=== PATIENT | female | born 1995 | race Caucasian/White ===

== ENCOUNTER 2017-04-20 12:37 | Inpatient (IN) | payer MEDICAID ==
[~2017-04-20] VITALS: Ht 149.9 cm; Wt 70.3 kg
[2017-04-20 12:59] VITALS: BP 136/68
--- NOTE | 2017-04-20 13:10 | NUR ---
21/F BIB FRIEND C/O MID ABDOMINAL PAIN X YESTERDAY. PT STATES HAS N/V AT THIS TIME. SKIN IS PINK/WARM/DRY; AAOX4 WITH EVEN AND STEADY GAIT; LUNGS CLEAR BL; HR EVEN AND REGULAR; PT DENIES ANY FEVER, CP, SOB, OR COUGH AT THIS TIME; PATIENT STATES PAIN OF 10/10 AT THIS TIME; VSS; PATIENT POSITIONED FOR COMFORT; HOB ELEVATED; BEDRAILS UP X2; BED DOWN. ER MD MADE AWARE OF PT STATUS.
[2017-04-20] MEDS ORDERED: HYDROmorphone 1 MG/ML AMP IVP ONE ×2 (13:30→15:30)
--- NOTE | 2017-04-20 13:38 | NUR ---
ER MD DR GOODWIN EVALUATING PT AT BEDSIDE.
--- NOTE | 2017-04-20 13:38 | NUR ---
INSERTED IV CATH NO 20 G RAC ; PT TOLERATED PROCEDURE WELL. IV PATENT/INTACT. Addendum: 04/20/17 at 1406 by [email or web address] Amendment undone in EDM - 04/20/17 at 1407 by [email or web address] NEDS GIVEN ORDER. Addendum: 04/20/17 at 1407 by [email or web address] MEDS GIVEN ORDER.
[2017-04-20] MEDS ORDERED: ONDANSETRON 4 MG/2 ML VIAL IVP ONE (13:40)
[2017-04-20] MEDS ORDERED: NACL 0.9% 1,000 ML IV ONE ×4 (13:40→17:05)
--- NOTE | 2017-04-20 13:56 | NUR ---
LAB AT BEDSIDE
--- NOTE | 2017-04-20 14:00 | NUR ---
Lana fitch in [facility] - 04/20/17 at 1453 by MED1 PROVIED URINE CUP FOR URINE COLLECTION.
--- NOTE | 2017-04-20 14:00 | NUR ---
PROVIDED URINE CUP FOR URINE COLLECTION.
--- NOTE | 2017-04-20 14:04 | NUR ---
PT STS ABDOMINAL PAIN 04/10.Patient appears to be resting comfortably in bed. Vital Signs within normal limits. Respirations even and unlabored.WILL CONTINUE TO MONITOR.
[2017-04-20 14:19] LABS: ANION GAP 15.4 (8-16); BASOPHILS # (AUTO) 0.1 K/uL (0.00-0.22); BASOPHILS % (AUTO) 1.2 % (0.0-2.0); CALCIUM 8.5 mg/dL (8.5-10.1); CARBON DIOXIDE 24.2 mmol/L (21-32); CREATININE 0.9 mg/dL (0.6-1.3); EOSINOPHILS # (AUTO) 0.1 K/uL (0-0.4); EOSINOPHILS % (AUTO) 1.2 % (0.0-4.0); HEMATOCRIT 38.2 % (36-48); HEMOGLOBIN 12.8 g/dL (12.0-16.0); LYMPHOCYTES # (AUTO) 0.6 K/uL (2.5-16.5); LYMPHOCYTES % (AUTO) 7.7 % (20.5-51.1); MEAN CORPUSCULAR HEMOGLOBIN 27 pg (27-31); MEAN CORPUSCULAR HGB CONC 34 g/dL (33-37); MEAN CORPUSCULAR VOLUME 80 fL (80-94); MONOCYTES # (AUTO) 0.6 K/uL (0.8-1.0); MONOCYTES % (AUTO) 7.7 % (1.7-9.3); NEUTROPHILS # (AUTO) 6.6 K/uL (1.8-7.7); NEUTROPHILS % (AUTO) 82.2 % (42.2-75.2); PLATELET COUNT (AUTO) 380 K/uL (140-450); POTASSIUM 3.6 mmol/L (3.5-5.1); RED BLOOD CELL COUNT(AUTO) 4.77 MIL/uL (4.20-5.40); RED CELL DISTRIBUTION WIDTH 12.9 % (11.6-13.7)
[2017-04-20 14:24] LABS: ALBUMIN 3.9 g/dL (3.4-5.0); TOTAL BILIRUBIN 0.6 mg/dL (0.0-1.0); TOTAL PROTEIN, SERUM 8.5 g/dL (6.4-8.2)
[2017-04-20 14:27] LABS: LACTIC ACID 0.9 mmol/L (0.4-2.0)
--- NOTE | 2017-04-20 14:49 | NUR ---
Patient appears to be SLEEPING comfortably in bed. Vital Signs within normal limits. Respirations even and unlabored.WILL CONTINUE TO MONITOR.
--- NOTE | 2017-04-20 15:07 | NUR ---
PT AMBULATED TO RESTROOM.
--- NOTE | 2017-04-20 15:30 | NUR ---
PT WENT TO RESTROOM IN 20 MINS ; PT CAN'T URENATE. PT STS ABDOMINAL PAIN 07/[address] CAMERON.
--- NOTE | 2017-04-20 15:40 | NUR ---
IVF&MED GIVEN ORDER.Patient appears to be resting comfortably in bed. Vital Signs within normal limits. Respirations even and unlabored.WILL CONTINUE TO MONITOR.
--- NOTE | 2017-04-20 15:40 | NUR ---
Note little in EDM - 04/20/17 at 1544 by MED1 IVF&MED GIVEN ORDER.Patient appears to be resting comfortably in bed. Vital Signs within normal limits. Respirations even and unlabored.
--- NOTE | 2017-04-20 16:02 | NUR ---
PT STS ABDOMINAL PAIN 04/10. DENIES N/V AT THIS TIME.
--- NOTE | 2017-04-20 16:03 | NUR ---
Patient appears to be resting comfortably in bed. Vital Signs within normal limits. Respirations even and unlabored.WILL CONTINUE TO MONITOR. FRIEND AT BEDSIDE.
--- NOTE | 2017-04-20 16:07 | NUR ---
MOTHER AT BEDSIDE.
--- NOTE | 2017-04-20 16:23 | NUR ---
PT HAS N/V. NOTIFIED ER MD DR CAMERON .
[2017-04-20] MEDS ORDERED: METOCLOPRAMIDE 10 MG/2 ML INJ VIAL IVP ONE (16:25)
--- NOTE | 2017-04-20 17:10 | NUR ---
PT AMB TO RESTROOM. URENATED, URINE DIP DONE, SENT SPECIMEN TO LAB
--- NOTE | 2017-04-20 17:25 | NUR ---
Patient appears to be resting comfortably in bed. BP105/59,P103, PULSE OX 100%. Respirations even and unlabored.WILL CONTINUE TO MONITOR. Addendum: 04/20/17 at 1730 by [email or web address] BP 103/76
[2017-04-20 17:44] LABS: APPEARANCE,URINE CLEAR (CLEAR); BILIRUBIN,URINE NEGATIVE (NEGATIVE); BLOOD, URINE NEGATIVE (NEGATIVE); COLOR,URINE YELLOW (YELLOW); LEUKOCYTE ESTERASE ,URINE NEGATIVE (NEGATIVE); NITRITE, URINE NEGATIVE (NEGATIVE); PH,URINE 5.5 (5.0-9.0); PROTEIN,URINE NEGATIVE (NEGATIVE); UGLUCOSE NEGATIVE (NEGATIVE); UROBILINOGEN,URINE 0.2 EU/dL (0.2 - 1)
--- NOTE | 2017-04-20 17:50 | NUR ---
PT TAKEN TO CT VIA W/C ACCOMPANIED BY INSURANCE AND FINANCIAL SERVICES AGENT. PT STS ABDOMINAL PAIN 02/08. DENIEDS N/V AT THIS TIME.
[2017-04-20 17:55] LABS: BACTERIA,URINE 1-9 (FEW) /HPF (None Seen); RBC,URINE 0-5 (RARE) /HPF (0-5); SQUAMOUS EPITHELIAL CELL,UR 4-10 (MOD) /LPF (0-3 (FEW))
--- NOTE | 2017-04-20 17:59 | NUR ---
PT BACK FROM CT
--- NOTE | 2017-04-20 19:00 | NUR ---
Patient appears to be resting comfortably in bed. Vital Signs within normal limits. Respirations even and unlabored.WILL CONTINUE TO MONITOR .PT C/O PAIN 05/11
--- NOTE | 2017-04-20 19:12 | NUR ---
Pt report given to AFTAB BURGESS. Transfer of care at this time.
[2017-04-20] MEDS ORDERED: NACL 0.9% 1,000 ML IV SCH (19:14)
[2017-04-20] MEDS ORDERED: ACETAMINOPHEN 325 MG TAB PO PRN (19:15)
[2017-04-20] MEDS ORDERED: DOCUSATE SODIUM 100 MG GELCAP PO PRN (19:15)
--- NOTE | 2017-04-20 19:55 | NUR ---
Patient will be admitted to care of DR MARC. Admited to TELE 105B. Will go to room 105B. Belongings list completed. Report to JAHAIRA UGALDE .
--- NOTE | 2017-04-20 19:55 | NUR ---
REPORT GIVEN TO JAHAIRA UGALDE.
[2017-04-20] MEDS ORDERED: LEVOFLOXACIN 500 MG/D5W PREMIX 100 ML IV SCH (20:00)
[2017-04-20 20:05] VITALS: BP 106/72
--- NOTE | 2017-04-20 20:05 | NUR ---
Admitted from ER, with chief complaint of ABD PAIN. PT'S MOTHER AT BEDSIDE. 21 y/o, Female, Cooperative, AOX4, ABLE TO VERBALIZE NEEDS. PT DENIES NAUSEA/VOMITING AT THIS TIME. PT C/O ABD PAIN. WILL ADMINISTER PAIN MEDICATION ORDERED. oriented to call light, bed, phone,television, bathroom, smoking policy, visiting hours, procedures, ID bracelet on. Belongings list checked. DISCUSSED AND REVIEWED PLAN OF CARE WITH PT AND PT'S MOTHER. PT VERBALIZED UNDERSTANDING. SAFETY MEASURES ENSURED. CALL LIGHT WITHIN REACH. WILL CONTINUE TO MONITOR.
[2017-04-20 20:15] LABS: INR 1.1 (0.8-1.2); PARTIAL THROMBOPLASTIN TIME 29.9 secs (22-35.6); PROTHROMBIN TIME 11.2 secs (10.8-13.4)
[2017-04-20 20:28] LABS: CHOL/HDL RATIO 3.5 (1-4.5); FREE T4 (FREE THYROXINE) 0.9 ng/dL (0.76-1.46); MAGNESIUM 1.9 mg/dL (1.8-2.4); PHOSPHORUS 3.3 mg/dL (2.5-4.9); THYROID STIMULATING HORMONE 1.64 uIU/mL (0.34-3.74)
[2017-04-20] MEDS: MORPHINE SULFATE 2 MG/ML SYR IVP PRN ×2 (20:42→23:17)
--- NOTE | 2017-04-20 20:42 | NUR ---
PT C/O ABD PAIN. SEE PAIN ASSESSMENT. ADMINISTERED PAIN MED ORDERED. PT EVALUATED BY DR ROMAN AT BEDSIDE, DISCUSSED AND REVIEWED PT CONDITION AND SURGERY. PT VERBALIZED UNDERSTANDING. CONSENT SIGNED, PRE-OP CHECKLIST DONE. AWAITING OR NURSE TO FIBERGLASS BOAT PARTS FINISHER PATIENT.
[2017-04-20] MEDS ORDERED: ROCURONIUM 50 MG/5 ML VIAL IV ONE (21:00)
[2017-04-20] MEDS ORDERED: metroNIDAZOLE 500 MG/NS PREMIX 100 ML IV SCH (21:00)
[2017-04-20] MEDS ORDERED: BUPIVACAINE-MPF/EPI 0.25% 30 ML VIAL INJ ONE (21:00)
[2017-04-20] MEDS ORDERED: SUCCINYLCHOLINE CHLORIDE 200 MG/10 ML VIAL IVP ONE (21:00)
[2017-04-20] MEDS ORDERED: GLYCOPYRROLATE 0.2 MG/ML VIAL ONE (21:00)
[2017-04-20] MEDS ORDERED: SEVOFLURANE 250 ML BTL INH ONE (21:00)
[2017-04-20] MEDS ORDERED: PHENYLEPHRINE 10 MG/ML VIAL ONE (21:00)
[2017-04-20] MEDS ORDERED: PROPOFOL 200 MG/20 ML VIAL IV ONE (21:00)
[2017-04-20] MEDS ORDERED: DEXAMETHASONE 4 MG/ML VIAL ONE (21:00)
[2017-04-20] MEDS ORDERED: ONDANSETRON 4 MG/2 ML VIAL ONE (21:00)
[2017-04-20] MEDS ORDERED: HYDROmorphone 1 MG/ML AMP IVP PRN (21:10)
[2017-04-20] MEDS ORDERED: MEPERIDINE 25 MG/ML SYR IVP PRN (21:10)
[2017-04-20] MEDS ORDERED: ONDANSETRON 4 MG/2 ML VIAL IVP PRN (21:10)
[2017-04-20] MEDS ORDERED: LACTATED RINGERS 1,000 ML IV SCH (21:10)
[2017-04-20] MEDS ORDERED: diphenhydrAMINE 50 MG/ML VIAL IVP PRN (21:10)
[2017-04-20] MEDS ORDERED: MIDAZOLAM 2 MG/2 ML VIAL ONE (21:19)
[2017-04-20] MEDS ORDERED: fentaNYL 0.05 MG/ML VIAL ONE (21:19)
[2017-04-20] MEDS ORDERED: MEPERIDINE 50 MG/ML SYR ONE (21:20)
[2017-04-20 23:04] VITALS: BP 102/55
--- NOTE | 2017-04-20 23:04 | NUR ---
PT BACK FROM OR. RECEIVED REPORT FROM OR NURSE. VS NOTED. PT C/O ABD PAIN. SEE PAIN ASSESSMENT. WILL ADMINISTER PAIN MEDICATION. 3 LAPARASCOPIC INCISIONS NOTED, SKIN GLUE NOTED. NO S/S OF ACUTE DISTRESS. SAFETY MEASURES ENSURED. CALL LIGHT WITHIN REACH. WILL CONTINUE TO MONITOR.
[2017-04-20 23:19] VITALS: BP 107/63
[2017-04-20 23:34] VITALS: BP 107/60
[2017-04-20] MEDS: LEVOFLOXACIN 500 MG/D5W PREMIX 100 ML IV SCH (23:48)
[2017-04-20] MEDS: NACL 0.9% 1,000 ML IV SCH (23:48)
[2017-04-21] VITALS: BP 110/64
[2017-04-21] MEDS: HYDROcodone/APAP 7.5/325 MG 1 TAB PO PRN ×3 (01:31→16:25)
--- NOTE | 2017-04-21 01:32 | NUR ---
PT C/O BREAKTHROUGH PAIN. SEE PAIN ASSESSMENT. ADMINISTERED NORCO WITH EDUCATION. PT VERBALIZED UNDERSTANDING, TOLERATED MED WELL. SAFETY MEASURES ENSURED. CALL LIGHT WITHIN REACH.
[2017-04-21] MEDS: ONDANSETRON 4 MG/2 ML VIAL IM/IVP PRN ×2 (03:48→08:09)
[2017-04-21] MEDS: MORPHINE SULFATE 2 MG/ML SYR IVP PRN (03:48)
--- NOTE | 2017-04-21 03:51 | NUR ---
ASSISTED PT TO THE RESTROOM. PT ABLE TO AMBULATE WITH 1PERSON ASSIST WITH MODERATE ASSISTANCE BUT PT IS MOANING, CRYING AND GUARDING, STATING SHE HAS A LOT OF PAIN. ADMINISTERED MORPHINE ORDERED. PT C/O NAUSEA, ADMINISTERED ZOFRAN ORDERED WITH EDUCATION.
[2017-04-21 04:00] VITALS: BP 119/60
[2017-04-21] MEDS ORDERED: MORPHINE SULFATE 4 MG/ML SYR IVP PRN (04:10)
--- NOTE | 2017-04-21 04:25 | NUR ---
PT STILL IN RESTROOM, UPON ATTEMPTING TO GET UP, PT C/O SEVERE PAIN, STATING "I CAN'T, IT HURTS TOO MUCH TO MOVE." PT STATED NO RELIEF FROM MORPHINE. MADE DR SILVERIO AWARE OF UNRELIEVED PAIN AFTER 2MG MORPHINE AND THAT PT IS STILL HAVING NAUSEA AFTER ZOFRAN IV. ORDERS PENDING, WILL CARRY OUT.
[2017-04-21] MEDS ORDERED: AMPICILLIN/SULBACTAM 3 GM VIAL ONE (04:33)
[2017-04-21] MEDS: AMPICILLIN/SULBACTAM 3 GM in NACL 0.9% 100 ML IV SCH ×3 (04:34→21:08)
--- NOTE | 2017-04-21 04:45 | NUR ---
PT ASSISTED BACK TO BED BUT C/O SEVERE PAIN. WAS ABOUT TO GIVE 5MG MORPHINE IVP ONE TIME ORDERED, BUT PT REFUSED MED, STATING "I THINK THE MORPHINE MAKES ME FEEL NAUSEOUS." WILL NOTIFY MD. PT RESTING IN BED AT THIS TIME. IVPB INFUSING WELL. SAFETY MEASURES ENSURED. CALL LIGHT IN REACH.
[2017-04-21] MEDS ORDERED: KETOROLAC 30 MG/ML VIAL IVP PRN (04:50)
[2017-04-21] MEDS ORDERED: MORPHINE SULFATE 10 MG/ML SYR IVP SCH (05:00)
[2017-04-21] MEDS: metroNIDAZOLE 500 MG/NS PREMIX 100 ML IV SCH ×3 (05:49→21:07)
[2017-04-21 06:06] LABS: BASOPHILS # (AUTO) 0.1 K/uL (0.00-0.22); BASOPHILS % (AUTO) 0.4 % (0.0-2.0); EOSINOPHILS # (AUTO) 0.3 K/uL (0-0.4); HEMATOCRIT 33.6 % (36-48); HEMOGLOBIN 11.1 g/dL (12.0-16.0); LYMPHOCYTES # (AUTO) 0.6 K/uL (2.5-16.5); LYMPHOCYTES % (AUTO) 4.3 % (20.5-51.1); MEAN CORPUSCULAR HEMOGLOBIN 27 pg (27-31); MEAN CORPUSCULAR HGB CONC 33 g/dL (33-37); MEAN CORPUSCULAR VOLUME 82 fL (80-94); MONOCYTES # (AUTO) 0.3 K/uL (0.8-1.0); MONOCYTES % (AUTO) 2.5 % (1.7-9.3); NEUTROPHILS # (AUTO) 12.4 K/uL (1.8-7.7); NEUTROPHILS % (AUTO) 90.8 % (42.2-75.2); PLATELET COUNT (AUTO) 345 K/uL (140-450); RED BLOOD CELL COUNT(AUTO) 4.12 MIL/uL (4.20-5.40); RED CELL DISTRIBUTION WIDTH 13.1 % (11.6-13.7)
--- NOTE | 2017-04-21 06:23 | NUR ---
PATIENT HAS BEEN SCREENED AND CATEGORIZED MODERATE NUTRITION RISK. PATIENT WILL BE SEEN WITHIN 3-5 DAYS OF ADMISSION. 04/23/17-04/25/[address]
[2017-04-21 06:31] LABS: ANION GAP 14.8 (8-16); CALCIUM 7.6 mg/dL (8.5-10.1); CARBON DIOXIDE 23.2 mmol/L (21-32); CREATININE 0.8 mg/dL (0.6-1.3)
[2017-04-21 06:58] LABS: WHITE BLOOD COUNT (AUTO) 13.7 K/uL (4.5-11.0)
--- NOTE | 2017-04-21 07:30 | NUR ---
ENDORSED PLAN OF CARE TO AM NURSE. PT SLEEPING. CONDITION STABLE.
--- NOTE | 2017-04-21 07:31 | NUR ---
RECEIVED CARE OF PT FROM BILINGUAL KINDERGARTEN TEACHER NURSE AT BEDSIDE. PT IS SLEEPING. NO DISTRESS NOTED. UPDATED THE BOARD. PT HAS IV ON R AC 20G RUNNING NS@100ML/HR. PT IS S/P LAP APPENDECTOMY, 3 INCISIONS, SKIN GLUE IN PLACE. CALL LIGHT WITHIN REACH. WILL CONTINUE TO MONITOR.
[2017-04-21 08:00] VITALS: BP 112/55
--- NOTE | 2017-04-21 08:05 | NUR ---
PT C/O OF SEVERE PAIN AND NAUSEA. PAIN MED AND ZOFRAN ADMINISTERED. VOMIT BAG AT BEDSIDE. PT IS SITTING AT EDGE OF BED. CALL LIGHT WITHIN REACH. WILL CONTINUE TO MONITOR.
[2017-04-21] MEDS: LACTOBACILLUS RHAMNOSUS GG 1 EACH CAP PO SCH (08:09)
[2017-04-21 08:18] LABS: HEMOGLOBIN A1C 5.6 % (4.8-5.6); T4 (THYROXINE) 6.3 ug/dL (4.5-12.0)
[2017-04-21] MEDS: NACL 0.9% 1,000 ML IV SCH ×2 (09:00→19:00)
--- NOTE | 2017-04-21 10:24 | NUR ---
PT STATED NAUSEA HAS IMPROVED. EDUCATED PT TO CALL FOR HELP AND FOR PAIN MED. VERBALIZED UNDERSTANDING. CALL LIGHT WITHIN REACH. WILL CONTINUE TO MONITOR.
--- NOTE | 2017-04-21 12:00 | NUR ---
HR 93, TEMP 98.6. PT SAT UP TO EAT LUNCH. NO COMPLAINTS AT THIS TIME. CALL LIGHT WITHIN REACH. WILL CONTINUE TO MONITOR.
--- NOTE | 2017-04-21 14:09 | NUR ---
PT HAS NO COMPLAINTS AT THIS TIME. NO DISTRESS NOTED. CALL LIGHT WITHIN REACH. WILL CONTINUE TO MONITOR.
--- NOTE | 2017-04-21 16:50 | NUR ---
PT C/O LEAKAGE AT IV SITE. IV REMOVED CANNULA INTACT. WILL PUT IN NEW IV.
--- NOTE | 2017-04-21 18:00 | NUR ---
INSERTED NEW IV ON L F/A 22 G. TOLERATED WELL. CALL LIGHT WITHIN REACH. WILL CONTINUE TO MONITOR.
--- NOTE | 2017-04-21 19:28 | NUR ---
ENDORSED CARE OF PT TO BACKEND DEVELOPER NURSE AT BEDSIDE. PT IN STABLE CONDITION.
--- NOTE | 2017-04-21 19:50 | NUR ---
SEEN PT AWAKE, ALERT AND ORIENTED LYING IN BED. MOTHER AT BEDSIDE. INITIAL ASSESSMENT DONE. PT HAS 3 ABDOMINAL INCISIONS W/ GLUE. PT COMPLAINING OF PRESSURE IN HER STOMACH. PT STATES NORCO DOESN'T REALLY HELP. OFFERED TORADOL BUT SAID IT DOESN'T HELP TOO. ENCOURAGED PT TO INCREASE MOVEMENT AND AMBULATION IN ORDER TO RELEASE THE PRESSURE AND ALSO TO USE TO INCENTIVE SPIROMETER. PT VERBALIZED UNDERSTANDING. MOTHER ENCOURAGING THE PT WELL. VITAL SIGNS CHECKED. BP=95/60. SAFETY ENSURED. CALL LIGHT W/IN REACH. RT CAME TO ASSESS PT.
[2017-04-21 20:00] VITALS: BP 95/60
--- NOTE | 2017-04-21 21:00 | NUR ---
SEEN PT UP GETTING OUT OF THE BATHROOM. PT AMBULATED AROUND THE UNIT. IV ANTIBIOTIC GIVEN ORDERED. PT GIVEN EXTRA PILLOW.
[2017-04-21] MEDS: LEVOFLOXACIN 500 MG/D5W PREMIX 100 ML IV SCH (22:01)
--- NOTE | 2017-04-22 01:05 | NUR ---
SEEN PT UP AMBULATING THE HALLWAY ACCOMPANIED BY GALINA AWAD.
--- NOTE | 2017-04-22 02:20 | NUR ---
PT CALLED COMPLAINING OF PAIN. PT GIVEN NORCO PRN ORDERED. WILL REASSESS PAIN LEVEL.
[2017-04-22] MEDS: HYDROcodone/APAP 7.5/325 MG 1 TAB PO PRN ×2 (02:21→07:56)
--- NOTE | 2017-04-22 02:40 | NUR ---
PT CALLED STILL HAVING A LOT OF PAIN AND WANTS TO GET UP AND WALK. ASSISTED PT TO GET UP AND WALK AROUND THE UNIT. AFTERWARDS, PT WENT TO THE BATHROOM.
--- NOTE | 2017-04-22 02:50 | NUR ---
PT WANTS TO STAY STANDING UP FOR A WHILE. CALL LIGHT W/IN REACH AND INSTRUCTED TO CALL WHEN SHE WANTS TO GO LIE DOWN IN BED. PT SAID "OK".
--- NOTE | 2017-04-22 02:51 | NUR ---
PT STATES THE PAIN IS ON HER LEFT BUTTOCK NOW. ASKED PT IF SHE LIE DOWN ON HER LEFT SIDE WHEN SHE SLEEP. PT SAID SHE CAN'T REMEMBER.
--- NOTE | 2017-04-22 03:15 | NUR ---
SEEN PT WALKING IN THE HALLWAY BY HERSELF. ASKED RITESH OSMAN TO ACCOMPANY THE PT WHILE AMBULATING.
[2017-04-22 04:00] VITALS: BP 91/67
[2017-04-22] MEDS: metroNIDAZOLE 500 MG/NS PREMIX 100 ML IV SCH ×2 (04:39→12:02)
--- NOTE | 2017-04-22 04:40 | NUR ---
SEEN PT AWAKE. PT SAID HER PAIN IS STILL THERE AND PT IS LAYING ON HER RIGHT SIDE FOR NOW. PT SAID SHE BURPED EARLIER AND SHE TASTED ACID. PT STATES SHE FEELS NAUSEOUS RIGHT NOW. WILL MEDICATE FOR NAUSEA ORDERED. IV ATB GIVEN. WILL CONTINUE TO MONITOR.
[2017-04-22] MEDS: ONDANSETRON 4 MG/2 ML VIAL IM/IVP PRN ×2 (04:44→13:23)
--- NOTE | 2017-04-22 04:45 | NUR ---
OFFERED IV TORADOL BUT REFUSED. PT STATES MORPHINE MAKES HER SICK.
[2017-04-22] MEDS: AMPICILLIN/SULBACTAM 3 GM in NACL 0.9% 100 ML IV SCH (04:51)
[2017-04-22] MEDS: NACL 0.9% 1,000 ML IV SCH ×3 (05:00→15:00)
--- NOTE | 2017-04-22 05:45 | NUR ---
SEEN PT SLEEPING COMFORTABLY. CALL LIGHT W/IN REACH.
[2017-04-22 06:49] LABS: BASOPHILS # (AUTO) 0.1 K/uL (0.00-0.22); BASOPHILS % (AUTO) 1.2 % (0.0-2.0); EOSINOPHILS # (AUTO) 0.1 K/uL (0-0.4); EOSINOPHILS % (AUTO) 0.8 % (0.0-4.0); HEMATOCRIT 29.5 % (36-48); HEMOGLOBIN 9.8 g/dL (12.0-16.0); LYMPHOCYTES # (AUTO) 2.3 K/uL (2.5-16.5); MEAN CORPUSCULAR HEMOGLOBIN 27 pg (27-31); MEAN CORPUSCULAR HGB CONC 33 g/dL (33-37); MEAN CORPUSCULAR VOLUME 81 fL (80-94); MONOCYTES # (AUTO) 0.7 K/uL (0.8-1.0); MONOCYTES % (AUTO) 9.1 % (1.7-9.3); NEUTROPHILS # (AUTO) 4.2 K/uL (1.8-7.7); NEUTROPHILS % (AUTO) 57.9 % (42.2-75.2); PLATELET COUNT (AUTO) 322 K/uL (140-450); RED BLOOD CELL COUNT(AUTO) 3.64 MIL/uL (4.20-5.40); RED CELL DISTRIBUTION WIDTH 13.3 % (11.6-13.7); WHITE BLOOD COUNT (AUTO) 7.4 K/uL (4.5-11.0)
[2017-04-22 07:10] LABS: ANION GAP 11.7 (8-16); CALCIUM 7.7 mg/dL (8.5-10.1); CARBON DIOXIDE 25.8 mmol/L (21-32); CREATININE 0.9 mg/dL (0.6-1.3); POTASSIUM 3.5 mmol/L (3.5-5.1)
--- NOTE | 2017-04-22 07:10 | NUR ---
MD AT BEDSIDE. MD MADE AWARE OF PT'S PAIN LEVEL AND BP. BEDSIDE REPORT GIVEN TO DAYSHIFT NURSE.
--- NOTE | 2017-04-22 07:11 | NUR ---
RECEIVED REPORT ON PT AT BEDSIDE FROM METALLOGRAPHIC TECHNICIAN NURSE. PT IS A&OX4. C/O PAIN, WILL MEDICATE. C/O A LITTLE NAUSEA, WILL MEDICATE WITH ZOFRAN WHEN MED IS DUE. 3 INCISIONS ON ABD S/O LAP APPENDECTOMY SKIN GLUE IN PLACE. PT HAS IV ON L F/A 22 G RUNNING NS@40ML/HR. CALL LIGHT WITHIN REACH. WILL CONTINUE TO MONITOR.
--- NOTE | 2017-04-22 07:20 | NUR ---
RECEIVED PT FROM ADITYA UGALDE AT BEDSIDE. PT IS A&OX4. NO DISTRESS NOTED. C/O 05/11 PAIN, WILL GIVE PAIN MED. NO NAUSEA AT THIS TIME. PT HAS JO BAG DRAINING YELLOW URINE 300ML. PT HAS IV ON L HAND 20 G RUNNING LR@125ML/HR. PT HAS NC 3L, O2 SAT 99%, DROPPED NC TO 2L. WILL RECHECK. CALL LIGHT WITHIN REACH. WILL CONTINUE TO MONITOR. Addendum: 04/22/17 at 0921 by Mi Vega RN WRONG ENTRY
[2017-04-22 07:23] LABS: MAGNESIUM 1.9 mg/dL (1.8-2.4)
[2017-04-22 08:00] VITALS: BP 102/67
[2017-04-22] MEDS ORDERED: SIMETHICONE 40 MG/0.6 ML PO PRN (08:20)
--- NOTE | 2017-04-22 08:30 | NUR ---
SALINE LOCKED PT ORDERED BY DR OBANDO.
[2017-04-22] MEDS: LACTOBACILLUS RHAMNOSUS GG 1 EACH CAP PO SCH (08:55)
--- NOTE | 2017-04-22 09:05 | NUR ---
PT STATED SHE IS NO LONGER NAUSEATED. CALL LIGHT WITHIN REACH. WILL CONTINUE TO MONITOR.
--- NOTE | 2017-04-22 11:12 | NUR ---
PT TOLD DR. ROMAN SHE IS STILL NAUSEATED AFTER EATING. DR. ROMAN EXAMINED PT. DR STATED PT IS OKAY TO DC.
--- NOTE | 2017-04-22 12:18 | NUR ---
PROVIDED PT WITH PRUNE JUICES TO HELP PASS GAS. EDUCATED PT. PT VERBALIZED UNDERSTANDING. CALL LIGHT WITHIN REACH. WILL CONTINUE TO MONITOR.
[2017-04-22 13:52] LABS: BASOPHILS # (AUTO) 0.2 K/uL (0.00-0.22); BASOPHILS % (AUTO) 2.3 % (0.0-2.0); EOSINOPHILS # (AUTO) 0.1 K/uL (0-0.4); EOSINOPHILS % (AUTO) 1.5 % (0.0-4.0); HEMATOCRIT 34.3 % (36-48); LYMPHOCYTES # (AUTO) 2.1 K/uL (2.5-16.5); LYMPHOCYTES % (AUTO) 28.3 % (20.5-51.1); MEAN CORPUSCULAR HEMOGLOBIN 26 pg (27-31); MEAN CORPUSCULAR HGB CONC 32 g/dL (33-37); MEAN CORPUSCULAR VOLUME 81 fL (80-94); MONOCYTES # (AUTO) 0.6 K/uL (0.8-1.0); MONOCYTES % (AUTO) 8.5 % (1.7-9.3); NEUTROPHILS # (AUTO) 4.3 K/uL (1.8-7.7); NEUTROPHILS % (AUTO) 59.4 % (42.2-75.2); PLATELET COUNT (AUTO) 403 K/uL (140-450); RED BLOOD CELL COUNT(AUTO) 4.23 MIL/uL (4.20-5.40); WHITE BLOOD COUNT (AUTO) 7.3 K/uL (4.5-11.0)
[2017-04-22] MEDS: HYDROcodone/APAP 10/325 MG 1 TAB TAB PO PRN ×2 (14:21→23:55)
--- NOTE | 2017-04-22 14:30 | NUR ---
SISTER VISITING AT BEDSIDE. CALL LIGHT WITHIN REACH. WILL CONTINUE TO MONITOR.
[2017-04-22 16:00] VITALS: BP 103/68
--- NOTE | 2017-04-22 16:00 | NUR ---
COUSINS AT BEDSIDE. NO DISTRESS NOTED. CALL LIGHT WITHIN REACH. WILL CONTINUE TO MONITOR.
[2017-04-22] MEDS: SIMETHICONE 40 MG/0.6 ML PO SCH (16:49)
--- NOTE | 2017-04-22 18:06 | NUR ---
PT REPORTED HAVING A LIQUID BM.
--- NOTE | 2017-04-22 19:15 | NUR ---
RECEIVED REPORT FROM AFTAB AYALA AT BEDSIDE. INITIAL ASSESSMENT COMPLETED. PT AAOX4. PT STABLE AT THIS TIME. MOTHER AT BEDSIDE. PT IS MED SURGE. PT AMBULATORY. PT WEARING SCDS. PT HAS THREE ABDOMINAL INCISIONS SKIN GLUED. S/P LAP APPY. PT WEARING AN ABDOMINAL BINDER. ORIENTED PT TO ROOM AND SURROUNDINGS AND USE OF CALL LIGHT. EXPLAINED PLAN OF CARE TO PT AND MOTHER AND THEY VERBALIZE UNDERSTANDING. CALL LIGHT WITHIN REACH. Addendum: 04/22/17 at 2001 by Makenna Slaughter RN PT HAS IV ON LEFT FOREARM 22G ASYMPTOMATIC, PATENT AND INTACT.
--- NOTE | 2017-04-22 19:20 | NUR ---
ENDORSED CARE OF PT TO RESEARCH AND INSIGHTS EXECUTIVE NURSE AT BEDSIDE. PT IN STABLE CONDITION.
--- NOTE | 2017-04-22 20:15 | NUR ---
PT AMBULATING ON HALLWAY ACCOMPANIED BY MOTHER. PT TOLERATING IT WELL. WILL CONTINUE TO MONITOR PT.
--- NOTE | 2017-04-22 20:35 | NUR ---
PT BACK IN BED RESTING NOW. PT DENIES PAIN. WILL CONTINUE TO MONITOR PT.
--- NOTE | 2017-04-22 21:25 | NUR ---
PT REQUESTING A SODA, PROVIDED PT WITH IT. WILL CONTINUE TO MONITOR PT.
--- NOTE | 2017-04-22 22:54 | NUR ---
PT STATED THAT HER IV WAS HURTING. IV REMOVED WITH TIP INTACT. NEW IV STARTED ON LEFT HAND 24G; ASYMPTOMATIC, PATENT AND INTACT. PT TOLERATED IT WELL. WILL CONTINUE TO MONITOR PT.
--- NOTE | 2017-04-22 23:53 | NUR ---
PT COMPLAINING OF ABDOMINAL PAIN 03/11. VS STABLE, WILL MEDICATE ORDERED.
[2017-04-23] VITALS: BP 108/61
--- NOTE | 2017-04-23 01:35 | NUR ---
PT REQUESTING TO GET IV DISCONNECTED TO AMBULATE TO THE RESTROOM. PT BACK IN BED NOW. WILL CONTINUE TO MONITOR PT.
--- NOTE | 2017-04-23 03:32 | NUR ---
PT STATES SHE IS COLD, WILL PROVIDE PT WITH A WARM BLANKET.
[2017-04-23] MEDS: NACL 0.9% 1,000 ML IV SCH (05:40)
--- NOTE | 2017-04-23 05:45 | NUR ---
PT AMBULATED ON HALLWAY. PT TOLERATED IT WELL. PT BACK IN BED NOW. CALL LIGHT WITHIN REACH.
[2017-04-23 06:43] LABS: BASOPHILS # (AUTO) 0.1 K/uL (0.00-0.22); BASOPHILS % (AUTO) 2.1 % (0.0-2.0); EOSINOPHILS # (AUTO) 0.1 K/uL (0-0.4); EOSINOPHILS % (AUTO) 1.1 % (0.0-4.0); HEMATOCRIT 32.3 % (36-48); HEMOGLOBIN 10.8 g/dL (12.0-16.0); LYMPHOCYTES # (AUTO) 2.4 K/uL (2.5-16.5); LYMPHOCYTES % (AUTO) 34.7 % (20.5-51.1); MEAN CORPUSCULAR HEMOGLOBIN 27 pg (27-31); MEAN CORPUSCULAR HGB CONC 33 g/dL (33-37); MEAN CORPUSCULAR VOLUME 82 fL (80-94); MONOCYTES # (AUTO) 0.6 K/uL (0.8-1.0); MONOCYTES % (AUTO) 9.3 % (1.7-9.3); NEUTROPHILS # (AUTO) 3.6 K/uL (1.8-7.7); NEUTROPHILS % (AUTO) 52.8 % (42.2-75.2); PLATELET COUNT (AUTO) 379 K/uL (140-450); RED BLOOD CELL COUNT(AUTO) 3.96 MIL/uL (4.20-5.40); RED CELL DISTRIBUTION WIDTH 13.2 % (11.6-13.7); WHITE BLOOD COUNT (AUTO) 6.8 K/uL (4.5-11.0)
[2017-04-23 06:57] LABS: ANION GAP 12.6 (8-16); CALCIUM 8.3 mg/dL (8.5-10.1); CARBON DIOXIDE 24.9 mmol/L (21-32); CREATININE 0.9 mg/dL (0.6-1.3); POTASSIUM 3.5 mmol/L (3.5-5.1)
--- NOTE | 2017-04-23 07:05 | NUR ---
ENDORSED PLAN OF CARE TO DAY SHIFT NURSE. PT IN STABLE CONDITION.
--- NOTE | 2017-04-23 07:06 | NUR ---
RECEIVED CARE OF PT FROM BOILERS INSPECTOR NURSE AT BEDSIDE. PT IS A&OX4. PT HAS IV ON L HAND 22 G RUNNING NS@70ML.HR. PT HAS NO COMPLAINTS AT THIS TIME. SCDS ON. UPDATED PT ON PLAN OF CARE. CALL LIGHT WITHIN REACH. WILL CONTINUE TO MONITOR.
[2017-04-23] MEDS ORDERED: ONDA4TAB PO ×2 (07:11→07:55)
[2017-04-23] MEDS ORDERED: ACET-1182 PO (07:56)
[2017-04-23 08:00] VITALS: BP 116/66
[2017-04-23] MEDS ORDERED: IBUP-1842 PO (08:01)
[2017-04-23] MEDS ORDERED: SIME20SU1 PO (08:08)
[2017-04-23 09:10] VITALS: BP 116/66
[2017-04-23] MEDS: SIMETHICONE 40 MG/0.6 ML PO SCH (09:10)
--- NOTE | 2017-04-23 09:40 | NUR ---
WENT OVER DC PAPERWORK WITH PT. PT VERBALIZED UNDERSTANDING AND SIGNED ALL APPROPRIATE PAPERWORK. REMOVED IV, CANNULA INTACT. REMOVED ID BANDS. EDUCATED PT TO CALL WHEN READY TO GO HOME. CALL LIGHT WITHIN REACH. WILL CONTINUE TO MONITOR.
--- NOTE | 2017-04-23 09:50 | NUR ---
PT REFUSED WHEELCHAIR. PT WALKED OUT OF HOSPITAL, ACCOMPANIED BY MOTHER. TOOK ALL BELONGINGS. PT IN STABLE CONDITION.
[2017-04-23] MEDS ORDERED: SIME80CT70 PO (14:40)
[2017-04-23] MEDS ORDERED: IBUP-2213 PO (14:51)
[2017-04-23] MEDS ORDERED: ONDA4ODT1 SL (14:51)
[2017-04-23] MEDS ORDERED: SIME80CT27 PO (14:51)
== END 2017-04-23 09:50 | disposition home or self-care (01) | DRG 225 ==
LOC: MED 12:48 → MTU 19:24
PROVIDERS: ADMIT Student in an Organized Health Care Education/Training Program; ATTEND Student in an Organized Health Care Education/Training Program
PROC: 0DTJ4ZZ Resection of Appendix, Percutaneous Endoscopic Approach (ICD-10-PCS; principal; 2017-04-20 21:00)
DX: K35.80 Unspecified acute appendicitis (principal); K56.7 Ileus, unspecified; D64.9 Anemia, unspecified; Z53.29 Procedure and treatment not carried out because of patient's decision for other reasons
CPT/HCPCS: 36415; 71010; 80048; 80053; 81001; 81025; 82150; 83036; 83605; 83690; 83735; 83880; 84100; 84436; 84439; 84443; 84479; 85025; 85610; 85730; 86886; 86900; 86901; 87040; 87081; 88304; 93005; 96361; 96374; 96375; 96376; 99285; J0295; J0330; J1100; J1170; J1885; J1956; J2175; J2250; J2270; J2370; J2405; J2704; J2765; J3010; J3490; J7030; Q0092; Q9967

== ENCOUNTER 2024-05-18 13:54 | Emergency (ER) | payer MEDICAID ==
[~2024-05-18] VITALS: Ht 149.9 cm; Wt 88.6 kg
[~2024-05-18 13:54] MED LIST: IBUP-2213 PO; ONDA-188 SL; SIME80CT27 PO
[2024-05-18 14:14] VITALS: BP 139/92; PULSE 108; RESP 18; TEMP 97.6; O2SAT 100
[2024-05-18 14:54] LABS: BASOPHILS % (AUTO) 0.5 % (0.0-2.0); EOSINOPHILS # (AUTO) 0.1 K/uL (0-0.4); EOSINOPHILS % (AUTO) 0.9 % (0.0-4.0); HEMATOCRIT 40.8 % (36-48); HEMOGLOBIN 13.5 g/dL (12.0-16.0); LYMPHOCYTES # (AUTO) 2.2 K/uL (2.5-16.5); LYMPHOCYTES % (AUTO) 32.6 % (20.5-51.1); MEAN CORPUSCULAR HEMOGLOBIN 28 pg (27-31); MEAN CORPUSCULAR HGB CONC 33 g/dL (33-37); MEAN CORPUSCULAR VOLUME 82.9 fL (80-94); MONOCYTES # (AUTO) 0.7 K/uL (0.8-1.0); MONOCYTES % (AUTO) 11.2 % (1.7-9.3); NEUTROPHILS # (AUTO) 3.7 K/uL (1.8-7.7); NEUTROPHILS % (AUTO) 54.8 % (42.2-75.2); PLATELET COUNT (AUTO) 455 K/uL (140-450); RED BLOOD CELL COUNT(AUTO) 4.93 MIL/uL (4.20-5.40); RED CELL DISTRIBUTION WIDTH 14.3 % (11.6-13.7); WHITE BLOOD COUNT (AUTO) 6.7 K/uL (4.8-10.8)
[2024-05-18] MEDS: NACL 0.9% 1,000 ML IV ONE (14:56)
[2024-05-18] MEDS ORDERED: MEDR10TA PO (15:12)
[2024-05-18 16:16] VITALS: BP 139/92; PULSE 108; RESP 18; TEMP 97.6; O2SAT 100
== END 2024-05-18 16:16 | disposition home or self-care (01) ==
LOC: MED 13:54
DX: N93.8 Other specified abnormal uterine and vaginal bleeding (principal); R03.0 Elevated blood-pressure reading, without diagnosis of hypertension; Z90.49 Acquired absence of other specified parts of digestive tract; Z79.1 Long term (current) use of non-steroidal anti-inflammatories (NSAID); Z79.899 Other long term (current) drug therapy; Z88.2 Allergy status to sulfonamides; Z88.8 Allergy status to other drugs, medicaments and biological substances
CPT/HCPCS: 36415; 81025; 85025; 96360; 99283; J7030